=== PATIENT | female | born 1970 | race Caucasian/White ===

== ENCOUNTER 2017-01-16 21:10 | Inpatient (IN) | payer BC ==
[~2017-01-16] VITALS: Ht 167.6 cm; Wt 77.1 kg
--- NOTE | ~2017-01-16 | HP ---
History And Physical [id number] [facility] [place]. [address] NAME: SCOTT VALERO : 70 STATUS : ADM Altagracia PAT#: [id number] AGE: 46 ADM/REG DATE : 01/16/17 MR#: [id number] REPORT SERV DATE: 01/17/17 DICTATED BY: CELIO VALENTINE DATE: 01/16/17 REPORT STATUS : Draft TRANSCRIBED BY: MODL DATE: 01/16/17 DATE OF ADMISSION: 01/16/2017 CHIEF COMPLAINT: Abdominal pain. HISTORY: Ms. Valero is a 46-year-old female who complains of approximately 2-week history of abdominal pain, which became worse this last week while she was traveling and is intermittent with both a sharp and crampy component, greatest in the left upper quadrant, and in the left flank. She also complains of nausea. Her last bowel movement was two days ago. She does not feel constipated. She has a history of bowel obstruction, history of laparotomy for exsanguinating bleeding during , and has had a recent weight loss. Her last colonoscopy was earlier this year. She also complains of dizziness associated with nausea. PAST MEDICAL HISTORY: Significant for kidney stones and a history of pancreatitis with increased sphincter of Oddi pressures and history of pancreatitis, so she does not think her symptoms feel like pancreatitis at this time. MEDICATIONS: Her only medication is a hormone patch. PREVIOUS SURGERIES: Include surgery for bowel obstruction and hysterectomy. SOCIAL HISTORY: She denies tobacco abuse and only occasionally drinks ethanol. REVIEW OF SYSTEMS: Negative for shortness of breath and/or chest pain. She has had just a little bit of sharp pain in the epigastrium. PHYSICAL EXAMINATION: VITAL SIGNS: Her blood pressure 124/65, temperature 98.2, pulse 79, and respiratory rate 18. GENERAL: She is alert and appears to have a somewhat depressed affect. HEENT: She has somewhat dry mucous membranes. There is no scleral icterus. There is no JVD, thyromegaly, or cervical adenopathy, though she has had a little bit of a sore throat of note. She also denies any dysuria. : She has thought that she might have had a little hemorrhoidal bleeding. ABDOMEN: Soft with very minimal left upper quadrant tenderness and no masses and mild left flank pain. There is no incarcerated hernia identified. EXTREMITIES: Revealed no cyanosis, clubbing, or edema. ADDITIONAL DATA: Includes a CBC with white count of 8.1, hemoglobin 13.6, creatinine 0.89, and lipase is normal as are liver function tests. I independently reviewed the CT scan and the report is not back and it looks like she has moderate amount of stool. I do not see anything that looks like a bowel obstruction, and I will await the radiologist's review. IMPRESSION: Abdominal pain, it is unclear of the etiology, we will obtain a urinalysis, and she has left flank pain. She will also be hydrated and treated symptomatically with History And Physical [address] [place]. [address] NAME: SCOTT VALERO : 70 STATUS : ADM Altagracia PAT#: [id number] AGE: 46 ADM/REG DATE : 01/16/17 MR#: [id number] REPORT SERV DATE: 01/17/17 DICTATED BY: CELIO VALENTINE DATE: 01/16/17 REPORT STATUS : Draft TRANSCRIBED BY: ISAC DATE: 01/16/17 observation and additional workup or treatment will be rendered depending upon her clinical status. GAIL/ISAC Romero Valentine M.D. / [id number] CC: Romero Valentine M.D.
--- NOTE | ~2017-01-16 | CN ---
Consultation Report [id number] [place]. [address] NAME: SCOTT CANTOR : 70 STATUS : ADM IN PAT#: [id number] AGE: 46 ADM/REG DATE : 01/16/17 MR#: [id number] REPORT SERV DATE: 01/19/17 DICTATED BY: Romero WERNER DATE: 01/19/17 REPORT STATUS : Draft TRANSCRIBED BY: MODL DATE: 01/19/17 DATE OF CONSULTATION: 01/19/2017 CHIEF COMPLAINT: Abdominal and back pain. HISTORY OF PRESENT ILLNESS: Ms. Cantor is a 46-year-old white female, admitted on 01/16/2017, with a 2-week history of abdominal and left back pain, this first occurred when [place] was [place] and was intermittent in intensity. She complains of nausea and has some components of an ileus. She also has a history of stones in the remote past which she believes that she passed. A CT without contrast showed some 2 mm left nonobstructing renal stone. Her urinalysis was positive for mild inflammation and bacteria, but no urine culture was done. She is on antibiotics consisting of Bactrim DS. PAST MEDICAL HISTORY: 1. Urolithiasis. 2. Pancreatitis. 3. Placental abnormalities during requiring a laparotomy with near exsanguination. PAST SURGICAL HISTORY: 1. Hysterectomy. 2. Bowel obstruction. HOME MEDICATIONS: She is on estradiol patch as well as ibuprofen and Maxalt. ALLERGIES: MORPHINE CAUSES ITCHING AND RASH. SOCIAL HISTORY: The patient lives with her . She drinks alcohol occasionally. Denies tobacco use. REVIEW OF SYSTEMS: A 12-point review of systems negative except as noted above. PHYSICAL EXAMINATION: GENERAL: Alert 46-year-old white female, appears uncomfortable. VITAL SIGNS: Afebrile. HEENT: Exam is normocephalic, atraumatic. LUNGS: No respiratory distress. HEART: Regular rate and rhythm. ABDOMEN: No CVA tenderness. No abdominal distention. EXTREMITIES: No peripheral edema noted. PERTINENT LABORATORY: Creatinine 0.89. White count 8100. Urinalysis as noted above. CT shows increased amount of stool and the above-noted stone. Consultation Report [address] [place]. [address] NAME: SCOTT CANTOR : 70 STATUS : ADM IN PAT#: [id number] AGE: 46 ADM/REG DATE : 01/16/17 MR#: [id number] REPORT SERV DATE: 01/19/17 DICTATED BY: Romero WERNER DATE: 01/19/17 REPORT STATUS : Draft TRANSCRIBED BY: ISAC DATE: 01/19/17 IMPRESSION: 1. Left back and abdominal pain of uncertain etiology. 2. Nonobstructing 2 mm left renal stone. PLAN: 1. I will go ahead and check a culture even though she is on Septra DS. 2. I do not see this stone as the cause of her pain, but we will review this again tomorrow with Dr. Morejon. JPD/ISAC Romero Werner M.D. / [id number] CC: Augustine Conklin M.D.
[~2017-01-16 21:10] MED LIST: ESTRACE1 MG PO; HYDROCODONE PO; MINIVELLE1 EACH TOP; NORCO1 TA1 PO
[2017-01-16 22:17] LABS: BASOPHILS 0.2 %; BASOPHILS ABSOLUTE 0.02 10/3/uL (0.0-0.16); EOSINOPHILS 2.6 %; EOSINOPHILS ABSOLUTE 0.21 10/3/uL (0.0-0.53); HEMATOCRIT 40.6 % (36.0-48.0); HEMOGLOBIN 13.6 g/dL (12.0-16.0); IMMATURE GRANULOCYTES 0.1 %; IMMATURE GRANULOCYTES ABSOLUTE 0.01 10/3/uL (0.0-0.11); LYMPHOCYTES 15.8 %; LYMPHOCYTES ABSOLUTE 1.27 10/3/uL (0.67-4.30); MANUAL DIFF NO %; MEAN CORPUS HGB CONC 33.5 g/dL (32.0-36.0); MEAN CORPUSCULAR HEMOGLOB 30.8 pg (26.0-34.0); MEAN CORPUSCULAR VOLUME 92.1 fL (80-100); MONOCYTES 10.2 %; MONOCYTES ABSOLUTE 0.82 10/3/uL (0.21-1.20); NEUTROPHILS 71.1 %; NEUTROPHILS ABSOLUTE 5.73 10/3/uL (2.02-8.40); PLATELET COUNT 245 10/3/uL (150-400); RBC DISTRIBUTION WIDTH 13.1 % (12.0-16.0); RED CELL COUNT 4.41 10/6/uL (4.0-5.6); WHITE BLOOD CELLS 8.1 10/3/uL (4.5-10.5)
[2017-01-16 22:33] LABS: ALBUMIN 3.7 G/DL (3.5-5.0); ALKALINE PHOSPHATASE 61 U/L (45-117); CHLORIDE, SERUM 107 MMOL/L (96-112); CREATININE 0.89 MG/DL (0.55-1.02); GFR AFRICAN AMERICAN 90 ML/MIN (>=60); GFR NON AFRICAN AMERICAN 78 ML/MIN (>=60); GLOBULIN 3.8 G/DL (2.5-4.1); GLUCOSE, SERUM 100 MG/DL (60-99); POTASSIUM, SERUM 3.8 MMOL/L (3.5-5.3); SGOT(AST) 19 U/L (5-40); SGPT(ALT) 31 U/L (5-65); SODIUM, SERUM 142 MMOL/L (135-148); TOTAL BILIRUBIN 0.7 MG/DL (0-1.2); TOTAL PROTEIN 7.5 G/DL (6.0-8.5)
[2017-01-16 22:34] LABS: BUN (BLOOD UREA NITROGEN) 18 MG/DL (6-23); CALCIUM, SERUM 8.7 MG/DL (8.5-10.4); CO2 (CARBON DIOXIDE) 25 MMOL/L (24-34)
[2017-01-16] MEDS ORDERED: MAXALT10 MG PO (23:53)
[2017-01-16] MEDS ORDERED: MINIVELLE1 EAC1 TOP (23:53)
[2017-01-16] MEDS ORDERED: ADVIL PO (23:54)
[2017-01-17 01:02] LABS: ASCORBIC ACID (UR NOT ORDER) NEG (NEG); BILIRUBIN, URINE NEGATIVE (NEG); ER URINALYSIS TAT 0 Hrs 00 Mins; KETONE, URINE NEGATIVE (NEG); LEUKOCYTE ESTERASE(NOT OR NEG (NEG); NITRITE (URINE) NEG (NEG); WBC (NOT ORDERED) (RFLEX) 4 (0-5)
[2017-01-17 06:40] LABS: HEMATOCRIT 37.7 % (36.0-48.0); HEMOGLOBIN 12.9 g/dL (12.0-16.0)
[2017-01-18] MEDS ORDERED: BACTRIM DS1 TAB PO (12:53)
[2017-01-18] MEDS ORDERED: PR25 PO (12:54)
[2017-01-18] MEDS ORDERED: ULTRAM50 PO (12:54)
[2017-01-20 06:13] LABS: WBC (NOT ORDERED) (RFLEX) 0 (0-5)
[2017-01-20 06:54] LABS: ASCORBIC ACID (UR NOT ORDER) NEG (NEG); BILIRUBIN, URINE NEGATIVE (NEG); KETONE, URINE NEGATIVE (NEG); LEUKOCYTE ESTERASE(NOT OR NEG (NEG)
[2017-01-20] MEDS ORDERED: TORATAB PO (13:40)
[2017-01-20] MEDS ORDERED: ZOFRAN4 PO (13:41)
== END 2017-01-20 13:59 | disposition home or self-care (01) | DRG 389 ==
LOC: ER 21:10 → 5SO 23:58
PROVIDERS: Hospitalist; Nurse Practitioner
DX: K56.7 Ileus, unspecified (principal); N39.0 Urinary tract infection, site not specified; N20.0 Calculus of kidney; Z88.5 Allergy status to narcotic agent; K59.00 Constipation, unspecified
CPT/HCPCS: 74020; 74176; 80053; 81001; 83690; 85014; 85018; 85025; 96374; 99285; A9270-GY; J1170; J1885; J2405; J2550